=== PATIENT | male | born 1960 | race Caucasian/White ===

== ENCOUNTER 2017-05-08 14:17 | Inpatient (IN) ==
[2017-05-08] MEDS ORDERED: PIPERACILLIN/TAZOBACTAM 3,375 MG in SODIUM CHLORIDE 0.9% 100 ML IV STA (14:49)
[2017-05-08] MEDS ORDERED: VANCOMYCIN INJ 1,000 MG in SODIUM CHLORIDE 0.9% 250 ML IV STA (14:51)
--- NOTE | 2017-05-08 14:58 | XRay Report ---
Right toes, 3 views History is right toe swelling and erythema There are sequelae of prior amputation at the proximal to mid aspect of the fifth metatarsal. There is soft tissue swelling the first digit with soft tissue defect or gas present at the plantar aspect No acute underlying fracture or focal destructive bony change is seen. Impression: Soft tissue swelling and ulceration of the first digit PROCEDURE INTERPRETED AT [facility] DEPARTMENT OF RADIOLOGY Final Report Signed by: Dr. Belinda Harding
[2017-05-08] MEDS ORDERED: DEXTROSE 50% 25 GM/50 ML VIAL IV PRN (15:10)
[2017-05-08] MEDS ORDERED: DEXTROSE 50% 25 GM/50 ML SYRINGE IV PRN ×2 (15:10→16:45)
[2017-05-08] MEDS ORDERED: GLUCAGON 1 MG VIAL IM PRN ×3 (15:10→16:45)
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
[2017-05-08] MEDS ORDERED: MORPHINE 2 MG/1 ML SYRINGE IV PRN (15:13)
[2017-05-08] MEDS ORDERED: ONDANSETRON 4 MG/2 ML VIAL IV PRN (15:13)
--- NOTE | 2017-05-08 15:14 | XRay Report ---
Chest, 2 views History respiratory infection Comparison 03/12/2014 Mediastinal and hilar contours are unchanged No acute infiltrates seen Calcified right lung granuloma again seen Impression: No acute pathology seen PROCEDURE INTERPRETED AT [facility] DEPARTMENT OF RADIOLOGY Final Report Signed by: Dr. Belinda Harding
[2017-05-08 15:30] LABS: Basophils % 0.2 % (0.0-0.8); Eosinophils # 0.1 10*3/uL (0.0-0.87); Eosinophils % 0.4 % (0.00-10.9); Hematocrit 40.9 VOL% (42.0-52.0); Hemoglobin 13.7 GM/DL (14.0-18.0); Immature Granulocytes % 0.5 %; Immature Granulocytes Absolute 0.07 #; Lymphocytes # 1.1 10*3/uL (1.4-4.0); Lymphocytes % 7.5 % (21.2-54.2); Mean Corpuscular HGB Conc 33.5 GM/DL (32-36); Mean Corpuscular Hemoglobin 27 PG (27-34); Mean Corpuscular Volume 81.2 FL (87-102); Mean Platelet Volume 10.9 FL (9.6-12.0); Monocytes # 1.1 10*3/uL (0.11-0.8); Monocytes % 7.6 % (1.7-12.7); Neutrophils # 12.1 10*3/uL (1.4-7.4); Neutrophils % 83.8 % (38.7-73.9); Platelet Count 258 T/CUMM (130-400); Red Blood Count 5.04 MC/CUMM (3.8-5.5); Red Cell Distribution Width 12.9 % (9.3-17.3); White Blood Count 14.4 T/CUMM (4-12)
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
[2017-05-08 15:52] LABS: Albumin 3.2 G/DL (3.4-5.0); Bilirubin,Total 0.5 MG/DL (0.2-1.0); Calcium 9.2 MG/DL (8.5-10.1); Potassium 4.5 MMOL/L (3.5-5.1); Total Protein 7.6 G/DL (6.4-8.3)
[2017-05-08 16:00] LABS: Magnesium 2.2 MG/DL (1.8-2.4); Risk Ratio 2.94; Thyroid Stimulating Hormone 1.61 uIU/ml (0.358-3.74); VLDL CHOLESTEROL 18.2 MG/DL
[2017-05-08] MEDS ORDERED: SODIUM CHLORIDE 0.9% 250 ML IV ONE (16:01)
[2017-05-08] MEDS ORDERED: VANCOMYCIN 1,000 MG VIAL ONE (16:01)
[2017-05-08] MEDS ORDERED: INSULIN REGULAR 100 UNIT/ML SUBCUT SCH (16:30)
[2017-05-08] MEDS: SODIUM CHLORIDE 0.9% 1,000 ML IV SCH (18:38)
[2017-05-08] MEDS: PIPERACILLIN/TAZOBACTAM 3,375 MG in SODIUM CHLORIDE 0.9% 100 ML IV SCH (18:39)
[2017-05-08] MEDS: DOCUSATE SODIUM 100 MG CAPSULE PO SCH (20:49)
[2017-05-08] MEDS: INSULIN GLARGINE 100 UNIT/ML SUBCUT SCH (20:50)
[2017-05-08] MEDS: INSULIN LISPRO 100 UNIT/ML SUBCUT SCH (20:50)
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
[2017-05-09] MEDS: VANCOMYCIN INJ 1,500 MG in SODIUM CHLORIDE 0.9% 500 ML IV SCH ×2 (02:07→17:53)
[2017-05-09 04:02] LABS: Basophils % 0.4 % (0.0-0.8); Eosinophils # 0.2 10*3/uL (0.0-0.87); Eosinophils % 1.3 % (0.00-10.9); Hematocrit 37.2 VOL% (42.0-52.0); Hemoglobin 12.2 GM/DL (14.0-18.0); Immature Granulocytes % 0.4 %; Immature Granulocytes Absolute 0.04 #; Lymphocytes # 2.4 10*3/uL (1.4-4.0); Lymphocytes % 21.6 % (21.2-54.2); Mean Corpuscular HGB Conc 32.8 GM/DL (32-36); Mean Corpuscular Hemoglobin 27 PG (27-34); Mean Corpuscular Volume 82.1 FL (87-102); Monocytes # 1.4 10*3/uL (0.11-0.8); Monocytes % 12.6 % (1.7-12.7); Neutrophils # 7.1 10*3/uL (1.4-7.4); Neutrophils % 63.7 % (38.7-73.9); Platelet Count 221 T/CUMM (130-400); Red Blood Count 4.53 MC/CUMM (3.8-5.5); Red Cell Distribution Width 12.9 % (9.3-17.3); White Blood Count 11.2 T/CUMM (4-12)
[2017-05-09 04:29] LABS: Albumin 2.8 G/DL (3.4-5.0); Bilirubin,Total 0.7 MG/DL (0.2-1.0); Calcium 8.7 MG/DL (8.5-10.1); Osmolality,Calculated 282.4 MOS/KG (273-304); Potassium 3.9 MMOL/L (3.5-5.1); Total Protein 6.7 G/DL (6.4-8.3)
[2017-05-09] MEDS: INSULIN LISPRO 100 UNIT/ML SUBCUT SCH ×4 (09:07→21:35)
[2017-05-09] MEDS: DOCUSATE SODIUM 100 MG CAPSULE PO SCH ×2 (09:08→22:52)
[2017-05-09] MEDS: INSULIN GLARGINE 100 UNIT/ML SUBCUT SCH ×2 (09:08→21:36)
[2017-05-09] MEDS ORDERED: DEXTROSE 50% 25 GM/50 ML VIAL IV ONE (09:43)
[2017-05-09] MEDS ORDERED: DEXTROSE 50% 25 GM/50 ML SYRINGE IV ONE (09:44)
[2017-05-09] MEDS ORDERED: PROPOFOL 200 MG/20 ML VIAL IV ONE (10:45)
[2017-05-09] MEDS ORDERED: MIDAZOLAM 2 MG/2 ML VIAL ONE (10:45)
[2017-05-09] MEDS ORDERED: fentaNYL 100 MCG/2 ML VIAL ONE (10:46)
--- NOTE | 2017-05-09 11:00 | Anesthesia Post-Op ---
Anesthesia Post OP - Post Ansesthetic Evaluation Patient seen in post op: Yes Resp: within normal limits CV: within normal limits Mental: within normal limits Temp: within normal limits [id number]: within normal limits Nausea and Vomiting: within normal limits Pain: within normal limits
--- NOTE | 2017-05-09 13:08 | Operative Note ---
Date of procedure: 05/09/17 Pre-op diagnosis: Right great toe diabetic ulcer with nonviable necrotic tissue Post-op diagnosis: same Procedure: Procedure performed: Excisional debridement of right great toe ulcer including necrotic skin and subcutaneous tissue. Area debrided 2.8 x 3 cm Procedure in detail: After informed consent was obtained, patient was taken operating suite lies upon the operating table. After general anesthesia induced the right foot was prepped and draped in usual sterile fashion. After procedural pause 15 blade scalpel forceps Metzenbaum scissors were used to perform an excisional debridement removing necrotic skin and subcutaneous tissue. I was able to debride all the obvious necrotic tissue. The bone was not encountered. The remaining tissue appeared healthy and viable with good bleeding. Hemostasis achieved with spot electrocautery. The wound was irrigated and suctioned. There was packed with damp Dakin soaked 4 x 4's and sterile dressings applied. Patient was taken recovery room in stable condition. All lap and needle counts were correct at the end of the case. Anesthesia: MAC Surgeon / Physician: Mani Mcclellan Estimated blood loss: other (Less than 10 cc) Specimens: other (Tissue sent for culture) Condition: stable Disposition: PACU Results - Labs CBC & BMP: 05/09/17 03:00 05/09/17 03:00 Discharge Plan - Discharge Medications No Action metFORMIN [Glucophage] 1,000 mg PO BID W/MEALS Insulin Detemir [Levemir] 15 units SUBCUT BID - Follow Up or Referral - Forms/Instructions
--- NOTE | 2017-05-09 13:35 | Hospitalist Progress Note ---
Hospitalist: Subjective Interval history: Patient was sleepy due to anesthesia. He was seen postop. He is stable and family is in the room. They state the dietitian did come by this morning and she will come back in the afternoon to talk more. Exam - Constitutional Vitals: Period Temp Pulse Resp BP Sys/Dominguez Pulse Ox Last 24 Hr 97 F-101.3 F 55-87 12-20 112-186/64-98 95-99 Exam: 57-year-old white male with history of diabetes admitted by the hospitalist on with diabetic foot infection. Dr. Mcclellan from general surgery had been consulted and he was taken to the OR today for excisional debridement of right great toe ulcer. Patient is stable but sleepy due to anesthesia. He is afebrile vital signs are stable. His dressing is clean and dry. Patient's blood sugars are under better control. His hemoglobin A1c was 13 and dietitians have been consulted to assist him with his diet regimen. Dr. Oro was seen and examined patient and further recommendations to follow. Results - Labs CBC & BMP: 05/09/17 03:00 05/09/17 03:00
[2017-05-09] MEDS: PIPERACILLIN/TAZOBACTAM 3,375 MG in SODIUM CHLORIDE 0.9% 100 ML IV SCH ×2 (14:03→21:35)
[2017-05-09] MEDS: SODIUM CHLORIDE 0.9% 1,000 ML IV SCH ×2 (14:03)
[2017-05-10] MEDS: VANCOMYCIN INJ 1,500 MG in SODIUM CHLORIDE 0.9% 500 ML IV SCH ×2 (05:00→17:57)
[2017-05-10] MEDS: INSULIN LISPRO 100 UNIT/ML SUBCUT SCH ×4 (07:49→22:05)
[2017-05-10] MEDS: PIPERACILLIN/TAZOBACTAM 3,375 MG in SODIUM CHLORIDE 0.9% 100 ML IV SCH ×3 (07:49→22:05)
[2017-05-10] MEDS: SODIUM CHLORIDE 0.9% 1,000 ML IV SCH (07:49)
[2017-05-10] MEDS: INSULIN GLARGINE 100 UNIT/ML SUBCUT SCH ×2 (08:25→22:06)
[2017-05-10] MEDS: DOCUSATE SODIUM 100 MG CAPSULE PO SCH ×2 (08:25→22:05)
--- NOTE | 2017-05-10 09:41 | Event Note ---
Patient is postop day #1 status post excisional debridement of right great toe diabetic ulcer. He continues on IV vancomycin and Zosyn. He reports his pain is well controlled. He is tolerating oral intake without difficulty. He has no complaints at this time. Afebrile Right foot dressing taking down there is residual erythema and edema about the great toe and MTP joint with no significant tenderness. Wound bed of great toe appears viable without malodor or drainage. Blood cultures: No growth at 1 day Wound cultures: 2 separate gram-positive cocci organism; gram-negative wilmer organism Intraoperative cultures: Moderate gram-positive cocci; few gram-negative rods Assessment and plan The patient is postop day #1 status post excisional debridement of right great toe diabetic ulcer. Agree with continuing IV vancomycin and Zosyn as the patient does have some residual erythema associated with the great toe we need to monitor. Continue local wound care. Patient may transfer on heel.
[2017-05-10] MEDS: SODIUM HYPOCHLORITE 0.25% IRRIG 473 ML BOTTLE TOP SCH (10:23)
--- NOTE | 2017-05-10 10:50 | Hospitalist Progress Note ---
Assessment and Plan - Time spent with patient Time spent with patient: Less than 30 minutes (1) Diabetic infection of left foot Status: Acute Assessment and plan: 57-year-old white male with history of diabetes admitted by the hospitalist on with diabetic foot infection. Dr. Mcclellan from general surgery had been consulted and he was taken to the OR today for excisional debridement of right great toe ulcer. Patient is stable but sleepy due to anesthesia. He is afebrile vital signs are stable. His dressing is clean and dry. Patient's blood sugars are under better control. His hemoglobin A1c was 13 and dietitians have been consulted to assist him with his diet regimen. Dr. Oro was seen and examined patient and further recommendations to follow. 05/10/2017 patient feels pretty good today. Wound is clean with no further debridement needed but he does have some increased erythema of the right great toe. We will continue to watch this for possible amputation per Dr. Mcclellan. Patient is currently on Zosyn and vancomycin awaiting culture results. Patient is afebrile and his vital signs are stable. His blood sugars are under much better control. His sliding scale insulin was decreased to low intensity in his dose of Lantus was increased to 20 units twice daily yesterday. This seems to be working well so far. Diabetes educators have been in multiple times and he seems to be eager to change his eating habits. Patient is eating and drinking well so INT his IV and stop his IV fluids. Dr. Epperson will see and examine the patient and further recommendations to follow. Current Visit: No (2) Diabetes mellitus Status: Acute Current Visit: Yes Hospitalist: Subjective Interval history: Patient states he feels good today. Diabetes educators came and talked to him and he did learn a lot from them. His toe feels a lot better and he said Dr. Mcclellan said he was going to be here through the weekend on antibiotics. Exam - Constitutional Vitals: Period Temp Pulse Resp BP Sys/Dominguez Pulse Ox Last 24 Hr 97.2 F-99.2 F 62-77 12-20 125-155/60-87 96-98 Results - Labs CBC & BMP: 05/09/17 03:00 05/09/17 03:00
[2017-05-11] MEDS: PIPERACILLIN/TAZOBACTAM 3,375 MG in SODIUM CHLORIDE 0.9% 100 ML IV SCH (05:50)
[2017-05-11] MEDS: INSULIN LISPRO 100 UNIT/ML SUBCUT SCH ×4 (07:52→21:41)
[2017-05-11] MEDS: DOCUSATE SODIUM 100 MG CAPSULE PO SCH ×3 (09:15→21:47)
[2017-05-11] MEDS: INSULIN GLARGINE 100 UNIT/ML SUBCUT SCH ×2 (09:16→21:41)
--- NOTE | 2017-05-11 10:20 | Event Note ---
Afebrile vital signs stable. Patient is doing well. Status post debridement of necrotic tissue right great toe. Area of erythema on the right great toe has slightly improved but the erythema is much less intense. The wound appears clean. Will continue with local wound care. No need for debridement at this time. Recommend continuing antibiotics until the erythema has resolved.
[2017-05-11] MEDS: SODIUM HYPOCHLORITE 0.25% IRRIG 473 ML BOTTLE TOP SCH (11:11)
--- NOTE | 2017-05-11 14:22 | Hospitalist Progress Note ---
Assessment and Plan - Time spent with patient Time spent with patient: Less than 30 minutes (1) Diabetic infection of left foot Status: Acute Assessment and plan: 57-year-old white male with history of diabetes admitted by the hospitalist on with diabetic foot infection. Dr. Mcclellan from general surgery had been consulted and he was taken to the OR today for excisional debridement of right great toe ulcer. Patient is stable but sleepy due to anesthesia. He is afebrile vital signs are stable. His dressing is clean and dry. Patient's blood sugars are under better control. His hemoglobin A1c was 13 and dietitians have been consulted to assist him with his diet regimen. Dr. Oro was seen and examined patient and further recommendations to follow. 05/10/2017 patient feels pretty good today. Wound is clean with no further debridement needed but he does have some increased erythema of the right great toe. We will continue to watch this for possible amputation per Dr. Mcclellan. Patient is currently on Zosyn and vancomycin awaiting culture results. Patient is afebrile and his vital signs are stable. His blood sugars are under much better control. His sliding scale insulin was decreased to low intensity in his dose of Lantus was increased to 20 units twice daily yesterday. This seems to be working well so far. Diabetes educators have been in multiple times and he seems to be eager to change his eating habits. Patient is eating and drinking well so INT his IV and stop his IV fluids. Dr. Epperson will see and examine the patient and further recommendations to follow. 05/11/2017 patient feels pretty good today. His wound is clean and there is decreased erythema of the right great toe. His wound cultures have grown Pseudomonas, staph aureus, and group B strep that is all sensitive to Levaquin so this has been started. Order postop shoe so patient can get around in the room weightbearing through the heel. Patient's blood sugars are under good control and is very pleased with the education he received from the diabetes educators. Patient's blood pressures have been up consistently since admission. He is not on any blood pressure medication. Will discuss this with Dr. Epperson and see if she would like to start patient on something in house. This is not due to pain this patient has some neuropathy. Dr. Epperson will see and examine patient and further recommendations to follow. Current Visit: No (2) Diabetes mellitus Status: Acute Current Visit: Yes Hospitalist: Subjective Interval history: Patient states he is feeling good today. He has no complaints of pain and he is happy that Dr. Mcclellan said his foot is looking better. Exam - Constitutional Vitals: Period Temp Pulse Resp BP Sys/Dominguez Pulse Ox Last 24 Hr 97.4 F-99.1 F 61-71 16-18 155-162/78-94 93-97 Exam: 57-year-old white male, no acute distress, alert and oriented Chest clear CV regular rate and rhythm Abdomen soft and nontender Extremities with no edema, right great toe wound is clean with good granulation tissue, decreased erythema Results - Labs CBC & BMP: 05/09/17 03:00 05/09/17 03:00
[2017-05-11] MEDS: LEVOFLOXACIN INJ 500 MG in PREMIX 1 EACH IV SCH (16:12)
[2017-05-11] MEDS: LISINOPRIL 10 MG TABLET PO SCH (17:14)
[2017-05-12 06:51] LABS: Calcium 10.1 MG/DL (8.5-10.1); Osmolality,Calculated 280.4 MOS/KG (273-304)
[2017-05-12] MEDS: INSULIN LISPRO 100 UNIT/ML SUBCUT SCH ×4 (07:57→20:29)
--- NOTE | 2017-05-12 08:33 | Hospitalist Progress Note ---
Assessment and Plan - Time spent with patient Time spent with patient: Less than 30 minutes (1) Diabetic infection of left foot Status: Acute Assessment and plan: 57-year-old white male with history of diabetes admitted by the hospitalist on with diabetic foot infection. Dr. Mcclellan from general surgery had been consulted and he was taken to the OR today for excisional debridement of right great toe ulcer. Patient is stable but sleepy due to anesthesia. He is afebrile vital signs are stable. His dressing is clean and dry. Patient's blood sugars are under better control. His hemoglobin A1c was 13 and dietitians have been consulted to assist him with his diet regimen. Dr. Oro was seen and examined patient and further recommendations to follow. 05/10/2017 patient feels pretty good today. Wound is clean with no further debridement needed but he does have some increased erythema of the right great toe. We will continue to watch this for possible amputation per Dr. Mcclellan. Patient is currently on Zosyn and vancomycin awaiting culture results. Patient is afebrile and his vital signs are stable. His blood sugars are under much better control. His sliding scale insulin was decreased to low intensity in his dose of Lantus was increased to 20 units twice daily yesterday. This seems to be working well so far. Diabetes educators have been in multiple times and he seems to be eager to change his eating habits. Patient is eating and drinking well so INT his IV and stop his IV fluids. Dr. Epperson will see and examine the patient and further recommendations to follow. 05/11/2017 patient feels pretty good today. His wound is clean and there is decreased erythema of the right great toe. His wound cultures have grown Pseudomonas, staph aureus, and group B strep that is all sensitive to Levaquin so this has been started. Order postop shoe so patient can get around in the room weightbearing through the heel. Patient's blood sugars are under good control and is very pleased with the education he received from the diabetes educators. Patient's blood pressures have been up consistently since admission. He is not on any blood pressure medication. Will discuss this with Dr. Epperson and see if she would like to start patient on something in house. This is not due to pain this patient has some neuropathy. Dr. Epperson will see and examine patient and further recommendations to follow. 05/12/2017 patient has no complaints today and is doing well. His labs look good along with his blood sugars and vital signs. Lisinopril was added yesterday and his blood pressures are improved. He does see Dr. Bernstein in [place] and he will need to follow-up with him within 1 week of discharge for hypertension and diabetes management. Awaiting Dr. Suarez's opinion on his foot to see if he can be discharged today. Dr. Mcclellan stated if the cellulitis resolved then patient can be discharged home. Dr. Epperson will see and examine patient and further recommendations to follow. Current Visit: No (2) Diabetes mellitus Status: Acute Current Visit: Yes Hospitalist: Subjective Interval history: Patient feels good today. He has no complaints. He is anxiously awaiting general surgery to come by to see if he can go home. Exam - Constitutional Vitals: Period Temp Pulse Resp BP Sys/Dominguez Pulse Ox Last 24 Hr 97.5 F-99.0 F 59-72 18-20 120-174/69-93 95-99 Exam: 57-year-old white male, no acute distress, alert and oriented Chest clear CV regular rate and rhythm Abdomen soft and nontender Extremities with no edema, right great toe wound dressing is clean and dry Results - Labs CBC & BMP: 05/09/17 03:00 05/12/17 04:54 Lab Results: I have reviewed the past 24 hour labs
[2017-05-12] MEDS: LISINOPRIL 10 MG TABLET PO SCH (08:47)
[2017-05-12] MEDS: DOCUSATE SODIUM 100 MG CAPSULE PO SCH ×2 (08:47→20:30)
[2017-05-12] MEDS: SODIUM HYPOCHLORITE 0.25% IRRIG 473 ML BOTTLE TOP SCH (08:47)
[2017-05-12] MEDS: INSULIN GLARGINE 100 UNIT/ML SUBCUT SCH ×2 (08:47→20:29)
[2017-05-12] MEDS ORDERED: VANCOMYCIN INJ 1,000 MG in SODIUM CHLORIDE 0.9% 250 ML IV ONE (10:45)
[2017-05-12] MEDS: LEVOFLOXACIN INJ 500 MG in PREMIX 1 EACH IV SCH (11:58)
[2017-05-12] MEDS: VANCOMYCIN INJ 1,500 MG in SODIUM CHLORIDE 0.9% 500 ML IV SCH (12:21)
[2017-05-12] MEDS: PIPERACILLIN/TAZOBACTAM 3,375 MG in SODIUM CHLORIDE 0.9% 100 ML IV SCH ×2 (12:45→20:29)
--- NOTE | 2017-05-12 17:23 | Event Note ---
05/12/2017 Patient seems to be doing well with no unusual swelling of the dorsum of the foot. Erythema about the toe is improved and the ulcer looks clean at the base without any problems. Cultures were positive for 3 organisms including Pseudomonas.
[2017-05-13 03:58] LABS: Osmolality,Calculated 283.4 MOS/KG (273-304)
[2017-05-13] MEDS: PIPERACILLIN/TAZOBACTAM 3,375 MG in SODIUM CHLORIDE 0.9% 100 ML IV SCH ×3 (04:36→19:50)
[2017-05-13] MEDS: DOCUSATE SODIUM 100 MG CAPSULE PO SCH ×2 (08:10→21:04)
[2017-05-13] MEDS: LISINOPRIL 10 MG TABLET PO SCH (08:10)
[2017-05-13] MEDS: INSULIN LISPRO 100 UNIT/ML SUBCUT SCH ×4 (08:11→21:03)
[2017-05-13] MEDS ORDERED: SODIUM CHLORIDE 0.9% 1,000 ML IV ONE (08:16)
--- NOTE | 2017-05-13 10:16 | Event Note ---
05/13/2017. 1000 hrs. Patient is afebrile and generally doing fairly well with a postoperative Darco shoe in place. Question as to how they can do wound care. Discussed with him about the possibility of home health versus the doing the wound care. seems a little bit hesitant about doing it although she had to do something to the other side same time. Apparently Dr. Roper is being consulted on the patient tomorrow for possible planning for his antibiotics. Continuing present wound care
[2017-05-13] MEDS: LEVOFLOXACIN INJ 500 MG in PREMIX 1 EACH IV SCH (11:24)
[2017-05-13] MEDS: INSULIN GLARGINE 100 UNIT/ML SUBCUT SCH ×2 (11:50→21:04)
[2017-05-13] MEDS: SODIUM HYPOCHLORITE 0.25% IRRIG 473 ML BOTTLE TOP SCH (12:30)
--- NOTE | 2017-05-13 12:52 | Hospitalist Progress Note ---
Assessment and Plan - Time spent with patient Time spent with patient: Less than 30 minutes (1) Diabetic infection of left foot Status: Acute Assessment and plan: 57-year-old white male with history of diabetes admitted by the hospitalist on with diabetic foot infection. Dr. Mcclellan from general surgery had been consulted and he was taken to the OR today for excisional debridement of right great toe ulcer. Patient is stable but sleepy due to anesthesia. He is afebrile vital signs are stable. His dressing is clean and dry. Patient's blood sugars are under better control. His hemoglobin A1c was 13 and dietitians have been consulted to assist him with his diet regimen. Dr. Oro was seen and examined patient and further recommendations to follow. 05/10/2017 patient feels pretty good today. Wound is clean with no further debridement needed but he does have some increased erythema of the right great toe. We will continue to watch this for possible amputation per Dr. Mcclellan. Patient is currently on Zosyn and vancomycin awaiting culture results. Patient is afebrile and his vital signs are stable. His blood sugars are under much better control. His sliding scale insulin was decreased to low intensity in his dose of Lantus was increased to 20 units twice daily yesterday. This seems to be working well so far. Diabetes educators have been in multiple times and he seems to be eager to change his eating habits. Patient is eating and drinking well so INT his IV and stop his IV fluids. Dr. Epperson will see and examine the patient and further recommendations to follow. 05/11/2017 patient feels pretty good today. His wound is clean and there is decreased erythema of the right great toe. His wound cultures have grown Pseudomonas, staph aureus, and group B strep that is all sensitive to Levaquin so this has been started. Order postop shoe so patient can get around in the room weightbearing through the heel. Patient's blood sugars are under good control and is very pleased with the education he received from the diabetes educators. Patient's blood pressures have been up consistently since admission. He is not on any blood pressure medication. Will discuss this with Dr. Epperson and see if she would like to start patient on something in house. This is not due to pain this patient has some neuropathy. Dr. Epperson will see and examine patient and further recommendations to follow. 05/12/2017 patient has no complaints today and is doing well. His labs look good along with his blood sugars and vital signs. Lisinopril was added yesterday and his blood pressures are improved. He does see Dr. Bernstein in [place] and he will need to follow-up with him within 1 week of discharge for hypertension and diabetes management. Awaiting Dr. Suarez's opinion on his foot to see if he can be discharged today. Dr. Mcclellan stated if the cellulitis resolved then patient can be discharged home. Dr. Epperson will see and examine patient and further recommendations to follow. 05/13/2017 patient did not sleep well but otherwise he is doing okay. He is afebrile and his blood sugars look good. He was hypotensive overnight and this morning with an elevated creatinine of 1.5. Went ahead and stopped his lisinopril and bolused him 1 L of normal saline. Blood pressure is now improved. Patient's wound was clean but he still continues to have some erythema on the distal tip of the great toe. A pocket of purulence was expressed and a tunnel was made into that pocket with a Q-tip. Nurse was present and instructed in irrigating thoroughly with Dakin's and packing with Dakin's soaked 4 x 4 tip into the wound. Will make patient n.p.o. after midnight and let Dr. Mcclellan take a look at it in the morning just in case he needs another debridement. Dr. Epperson has consulted Dr. Jeffery to see in the morning. Further recommendations to follow. Current Visit: No (2) Diabetes mellitus Status: Acute Current Visit: Yes Hospitalist: Subjective Interval history: Patient states he did not sleep well last night but otherwise he is okay. Exam - Constitutional Vitals: Period Temp Pulse Resp BP Sys/Dominguez Pulse Ox Last 24 Hr 97.7 F-99.2 F 60-78 16-20 78-152/53-80 93-98 Exam: 57-year-old white male, no acute distress, alert and oriented Chest clear CV regular rate and rhythm Abdomen soft and nontender Extremities with no edema, right great toe wound is clean but continues to have redness on the top half of the toe. Was able to express some pus from a pocket at the 12:00 area. Now with 1 cm tunnel in that area Results - Labs CBC & BMP: 05/09/17 03:00 05/13/17 03:09 Lab Results: I have reviewed the past 24 hour labs
[2017-05-14] MEDS: PIPERACILLIN/TAZOBACTAM 3,375 MG in SODIUM CHLORIDE 0.9% 100 ML IV SCH ×2 (03:35→12:57)
[2017-05-14 06:44] LABS: Calcium 9.3 MG/DL (8.5-10.1); Osmolality,Calculated 279.4 MOS/KG (273-304); Potassium 4.2 MMOL/L (3.5-5.1)
[2017-05-14] MEDS: INSULIN LISPRO 100 UNIT/ML SUBCUT SCH ×3 (07:43→16:28)
[2017-05-14] MEDS: INSULIN GLARGINE 100 UNIT/ML SUBCUT SCH ×2 (08:26→10:02)
[2017-05-14] MEDS: SODIUM HYPOCHLORITE 0.25% IRRIG 473 ML BOTTLE TOP SCH (09:57)
[2017-05-14] MEDS: DOCUSATE SODIUM 100 MG CAPSULE PO SCH (10:03)
--- NOTE | 2017-05-14 10:13 | Event Note ---
Patient is postop day #5 status post excisional debridement of right great toe diabetic ulcer. He is receiving IV levaquin and zosyn. He reports his pain is well controlled. He is tolerating oral intake without difficulty. He has no complaints at this time. There are reports of purulence expressed from a pocket on the wound yesterday by the attending physician. ID consultation is pending. Afebrile Right foot dressing taking down there is residual erythema and edema about the great toe and MTP joint which is improved; no pain with ROM IP or MTP joints. Wound bed of great toe appears viable without malodor or drainage; tunnel explored and no bone palpable of distal phalanx and no further purulence appreciated. Blood cultures: No growth at 5 dats Wound cultures: pseudomonas, MSSA, GBS Intraoperative cultures: GBS Assessment and plan The patient is postop day #5 status post excisional debridement of right great toe diabetic ulcer. ID consultation pending for abx recommendations. Erythema is significantly improved, and there are no further areas for debridement at this time. Monitor erythema with new antibiotic regimen. 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 F/u Dr. Mcclellan 05/23/2017.
[2017-05-14] MEDS: LEVOFLOXACIN INJ 500 MG in PREMIX 1 EACH IV SCH (10:37)
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
--- NOTE | 2017-05-14 14:21 | Discharge Summary ---
<Gomez Sumner - Last Filed: 05/14/17 13:58> Hospital Course - Hospital Course Hospital Course: Mr. hill is a 57-year-old white male patient with a history of diabetes presented to the ED on 05/08 for further evaluation of right great toe. Patient reported the right great toe was very red, swollen, and painful with drainage. Pt. also reported a callus on plantar surface of great toe which he cared for with lotion. On examination in the ED, patient was noted to have a WBC of 14.4. Toe XR revealed soft tissue swelling and ulceration of the first digit. Pt. was accepted onto our service. IVF and IV antibiotics (Zosyn and Vancomycin) were started for patient. Surgery and ID saw patient during stay. Surgery performed a excisional debridement of right great toe ulcer including necrotic skin and subcutaneous tissue. Pt. tolerated the surgery well. Postoperatively his blood sugar did drop into the 60s but patient was asymptomatic. Hbg A1c was noted to be 13.2 and diabetes education was provided to the patient. Local wound care was continued. Wound cultures were positive for strep agalactiae and staph aureus. ID was consulted to recommend antibiotics for home use. Augmentin 875 mg twice a day, and levofloxacin 750 mg daily for a month. Pt. is to follow up with Dr. Roper (ID) in 2 weeks. Further instructions to follow per Dr. Epperson. Specialty Discharge - Follow Up or Referrals Follow up with: Gwendolyn Jeffery MD [Physician] - 05/24/17 9:30 am Mani Mcclellan MD [Physician] - 05/22/17 10:30 am Discharge Plan - Discharge Data Disposition: Disch To Home/Self Care - Discharge Medications New Insulin Glargine [Lantus] 20 unit SUBCUT BID #10 unit Levofloxacin Tab [Levaquin Tab] 750 mg PO DAILY #30 tablet Sodium Hypochlorite 0.25% Irr [Dakins 1/2 Strength 0.25% Soln] 1 applic TOP DAILY applic Amoxicillin/Clav Tab [Augmentin Tab] 875 mg PO BID #60 tablet Insulin Lispro [HumaLOG] See Protocol SUBCUT ACHS #7 unit Hydrocodone/Acetaminophen [Casco 10-325 Tablet] 1 each PO Q6-8H PRN #20 tablet PRN Reason: Pain Moderate (4-7) Discontinued metFORMIN [Glucophage] 1,000 mg PO BID W/MEALS Insulin Detemir [Levemir] 15 units SUBCUT BID - Follow Up or Referral Follow Up: Gwendolyn Jeffery MD [Physician] - 05/24/17 9:30 am Mani Mcclellan MD [Physician] - 05/22/17 10:30 am - Forms/Instructions Exam - Constitutional Vitals: Period Temp Pulse Resp BP Sys/Dominguez Pulse Ox Last 24 Hr 97.8 F-98.7 F 57-77 18-18 108-141/64-73 93-98 Discharge Results Labs on day of discharge: Labs from last 24 hours 05/14/17 05/14/17 05/14/17 10:50 09:42 06:46 Sodium Potassium Chloride Carbon Dioxide Anion Gap BUN Creatinine GFR Calculation BUN/Creatinine Ratio Glucose POC Glucose 192 H 162 H 69 L Calculated Osmolality Calcium C-Reactive Protein 05/14/17 05/14/17 05/13/17 05:22 05:22 20:31 Sodium 140 Potassium 4.2 Chloride 106 Carbon Dioxide 29 Anion Gap 9.2 BUN 17 Creatinine 1.20 GFR Calculation 84 BUN/Creatinine Ratio 14.00 Glucose 76 POC Glucose 257 H Calculated Osmolality 279.4 Calcium 9.3 C-Reactive Protein 0.77 H 05/13/17 15:58 Sodium Potassium Chloride Carbon Dioxide Anion Gap BUN Creatinine GFR Calculation BUN/Creatinine Ratio Glucose POC Glucose 146 H Calculated Osmolality Calcium C-Reactive Protein DS: Provider Date of admission: 05/08/17 15:07 Primary care physician: . No PCP Attending physician on admission: Kate Oro MD Consults: 05/08/17 15:11 Consult to [facility], Educator [CONS] Routine Reason for Sample Preparation Supervisor: Diabetes Education Consult to Physician [CONS] Routine Comment: Consulting Provider: Mani Mcclellan Consulting Provider Notified: Yes When should Consulting Provider be notified: Now Person Notified: Dr Mcclellan called Date Notified: 05/08/17 Time Notified: 18:40 05/08/17 16:17 Consult to Pharmacy [CONS] Routine Reason for Pharmacy Consult: Dose/Manage Vancomycin Comment: patient is diabetic/ creatinine 1.30/diabetic Right great toe ulcer 05/08/17 18:24 Consult to Pastoral Services [CONS] Routine Comment: Pastoral Screen: Request Sample Coordinator Visit Pastoral Screen Source of Request: Patient 05/12/17 10:45 Consult to Physician [CONS] Routine Comment: wound infection Consulting Provider: Gwendolyn Jeffery Consulting Provider Notified: Yes When should Consulting Provider be notified: Now Consult to Specialist Group: Infectious Disease When should Consulting Provider be notified: In am Person Notified: sen persaud Date Notified: 05/14/17 Time Notified: 08:32 05/13/17 10:16 Consult to Case Mgmt/Social Srvs [CONS] Routine Reason for Case Mgmt/Social Srvs: Discharge Planning Home Health Other Consult Comment: Possible home health for wound care Discharging clinician: Gomez Sumner NP <Marlys Epperson - Last Filed: 05/14/17 14:42> Hospital Course - Time spent with patient Time with patient DS: Greater than 30 minutes (time spent greater than 30mins) Diagnosis - Discharge Diagnosis (1) Diabetic infection of left foot Status: Acute (2) Diabetic foot infection Status: Acute (3) Diabetes mellitus Status: Acute Discharge Plan - Discharge Data Condition at Discharge: Stable Discharge Diet: advance to your usual diet Activity: resume usual activities as tolerated Exam - Constitutional General appearance: no acute distress - Head Head exam: Present: normal inspection - Eye Eye exam: Present: EOMI - Respiratory Respiratory exam: Present: clear to auscultation bilaterally - Cardiovascular Cardiovascular exam: Present: regular rate and rhythm - GI/Abdominal GI/Abdominal exam: Present: normal bowel sounds - Extremities Exam Extremities exam: Present: other (left foot bandaged)
[2017-05-14 16:20] VITALS: BP 116/66
== END 2017-05-14 17:15 | disposition home or self-care (01) | DRG 624 ==
LOC: N.ED 14:17 → SUATTDRO 15:07 → N.EDINP 15:07 → N.3E 16:54
PROVIDERS: ADMIT Internal Medicine; ATTEND Internal Medicine

== ENCOUNTER 2019-03-18 18:58 | Inpatient (IN) ==
[2019-03-18] MEDS ORDERED: SODIUM CHLORIDE 0.9% 500 ML IV STA ×2 (20:06→21:09)
[2019-03-18] MEDS ORDERED: ONDANSETRON 4 MG/2 ML VIAL IV STA (20:06)
[2019-03-18] MEDS ORDERED: MECLIZINE 25 MG TABLET PO STA (20:06)
[2019-03-18 20:26] LABS: Basophils % 0.3 % (0.0-0.8); Eosinophils # 0.1 10*3/uL (0.0-0.87); Eosinophils % 0.9 % (0.00-10.9); Hematocrit 43.1 VOL% (42.0-52.0); Hemoglobin 14.1 GM/DL (14.0-18.0); Immature Granulocytes % 0.2 %; Immature Granulocytes Absolute 0.02 #; Lymphocytes # 1.9 10*3/uL (1.4-4.0); Lymphocytes % 20.3 % (21.2-54.2); Mean Corpuscular HGB Conc 32.7 GM/DL (32-36); Mean Corpuscular Volume 81.8 FL (87-102); Mean Platelet Volume 10.5 FL (9.6-12.0); Monocytes % 6.2 % (1.7-12.7); Neutrophils % 72.1 % (38.7-73.9); Platelet Count 288 T/CUMM (130-400); Red Blood Count 5.27 MC/CUMM (3.8-5.5); Red Cell Distribution Width 13.8 % (9.3-17.3); White Blood Count 9.6 T/CUMM (4-12)
[2019-03-18 20:39] LABS: PT Patient Result 10.5 SECS
[2019-03-18 20:41] LABS: Apearance,Urine CLEAR (Clear); Bilirubin,Urine Negative (Negative); Blood, Urine Small mg/dL (Negative); Glucose,Urine (UA) 150 mg/dL (Negative); Hyaline Casts,Urine 3 /LPF (0-3); Ketones,Urine Negative (Negative); Mucus,Urine Occasional /LPF (Occasional); Nitrite,Urine Negative (Negative); Protein,Urine 100 MG/DL; RBC,Urine 2 /HPF (0-4); Squamous Epithelial Cell,Urine Occasional /HPF (0-10); Urine Color Yellow (Yellow); Urine Specific Gravity 1.015 (1.001-1.035); Urine Urobilinogen < 2.0 EU/DL (0.2-1.0); WBC,Urine 1 /HPF (0-6)
[2019-03-18 20:48] LABS: Alanine Aminotransferase 18 U/L (16-61); Albumin 3.5 G/DL (3.4-5.0); Alkaline Phosphatase 140 U/L (45-117); Aspartate Amino Transferase 19 U/L (0-37); Barbiturates Screen,Urine Negative (Negative); Benzodiazepines Screen,Urine Negative (Negative); Bilirubin,Total < 0.39 MG/DL (0.2-1.0); Blood Urea Nitrogen 35 MG/DL (7-18); Calcium 9.5 MG/DL (8.5-10.1); Cannabinoid Screen,Urine Negative (Negative); Glucose 202 MG/DL (74-106); Opiate Screen,Urine Negative (Negative); Osmolality,Calculated 288.7 MOS/KG (273-304); Phencyclidine Screen,Urine Negative (Negative); Total Protein 7.9 G/DL (6.4-8.3)
[2019-03-18 20:55] LABS: Troponin I < 0.015 NG/ML (0.00-0.045)
[2019-03-18] MEDS ORDERED: ACETAMINOPHEN 325 MG TABLET PO PRN (23:52)
[2019-03-18] MEDS ORDERED: ONDANSETRON 4 MG/2 ML VIAL IV PRN (23:52)
[2019-03-18] MEDS ORDERED: DEXTROSE 50% 25 GM/50 ML VIAL IV PRN (23:58)
[2019-03-18] MEDS ORDERED: GLUCAGON 1 MG VIAL IM PRN (23:58)
[2019-03-19] MEDS: INSULIN REGULAR 100 UNIT/ML SUBCUT SCH ×6 (04:15→21:06)
[2019-03-19] MEDS: SODIUM CHLORIDE 0.9% 1,000 ML IV SCH ×2 (04:16→17:51)
[2019-03-19] MEDS: ENOXAPARIN 40 MG/0.4 ML SYRINGE SUBCUT SCH (04:17)
[2019-03-19 06:45] LABS: Basophils % 0.3 % (0.0-0.8); Eosinophils # 0.1 10*3/uL (0.0-0.87); Eosinophils % 1.5 % (0.00-10.9); Hematocrit 37.9 VOL% (42.0-52.0); Hemoglobin 12.4 GM/DL (14.0-18.0); Immature Granulocytes % 0.1 %; Immature Granulocytes Absolute 0.01 #; Lymphocytes # 2.9 10*3/uL (1.4-4.0); Lymphocytes % 33.1 % (21.2-54.2); Mean Corpuscular HGB Conc 32.7 GM/DL (32-36); Mean Corpuscular Volume 82.2 FL (87-102); Mean Platelet Volume 10.5 FL (9.6-12.0); Monocytes % 9.3 % (1.7-12.7); Neutrophils % 55.7 % (38.7-73.9); Platelet Count 249 T/CUMM (130-400); Red Blood Count 4.61 MC/CUMM (3.8-5.5); Red Cell Distribution Width 13.9 % (9.3-17.3); White Blood Count 8.8 T/CUMM (4-12)
[2019-03-19 07:10] LABS: Alanine Aminotransferase 15 U/L (16-61); Albumin 2.9 G/DL (3.4-5.0); Alkaline Phosphatase 110 U/L (45-117); Aspartate Amino Transferase 13 U/L (0-37); Bilirubin,Total < 0.39 MG/DL (0.2-1.0); Blood Urea Nitrogen 33 MG/DL (7-18); Calcium 8.7 MG/DL (8.5-10.1); Glucose 81 MG/DL (74-106); Osmolality,Calculated 286.3 MOS/KG (273-304); Total Protein 6.8 G/DL (6.4-8.3)
[2019-03-20] MEDS: ENOXAPARIN 40 MG/0.4 ML SYRINGE SUBCUT SCH (00:16)
[2019-03-20] MEDS: SODIUM CHLORIDE 0.9% 1,000 ML IV SCH ×2 (03:56→12:32)
[2019-03-20] MEDS: INSULIN REGULAR 100 UNIT/ML SUBCUT SCH ×3 (07:58→16:16)
[2019-03-21] MEDS: INSULIN REGULAR 100 UNIT/ML SUBCUT SCH ×5 (00:01→21:48)
[2019-03-21] MEDS: ENOXAPARIN 40 MG/0.4 ML SYRINGE SUBCUT SCH (01:37)
[2019-03-21 06:52] LABS: Calcium 9.5 MG/DL (8.5-10.1); Osmolality,Calculated 288.3 MOS/KG (273-304)
[2019-03-21] MEDS: SODIUM CHLORIDE 0.9% 1,000 ML IV SCH (14:02)
[2019-03-22] MEDS: ENOXAPARIN 40 MG/0.4 ML SYRINGE SUBCUT SCH (01:24)
[2019-03-22] MEDS: SODIUM CHLORIDE 0.9% 1,000 ML IV SCH (02:55)
[2019-03-22] MEDS: INSULIN REGULAR 100 UNIT/ML SUBCUT SCH ×3 (08:35→16:10)
[2019-03-22 16:43] VITALS: BP 150/85
== END 2019-03-22 17:00 | disposition home or self-care (01) | DRG 312 ==
LOC: N.ED 18:58 → N.EDINP 18:58 → SUATTDRO 23:52 → N.5E 03-19 00:26 → SUATTDRO 03-21 14:30
PROVIDERS: ADMIT Internal Medicine; ATTEND Phlebology